=== PATIENT | male | born 1990 ===

== ENCOUNTER 2017-03-06 07:36 | Emergency (ER) | payer MEDICAID ==
[2017-03-06 07:36] VITALS: BMI 24.4
[2017-03-06] MEDS ORDERED: Morphine 4 MG/ML VIAL ONE (07:58)
[2017-03-06] MEDS ORDERED: Sodium Chloride 0.9% 1,000 ML ONE (07:59)
[2017-03-06] MEDS ORDERED: Sodium Chloride 0.9% 1,000 ML IV STA (08:06)
[2017-03-06 08:19] LABS: BASO # 0.1 K/uL (0.0-0.2); BASO % 0.5 % (0.0-2.0); EOS # 0.1 K/uL (0.0-0.7); EOS % 0.9 % (0.0-4.0); HEMOGLOBIN 15.1 g/dL (12.0-18.0); LYMPH # 1.9 K/uL (1.0-4.3); LYMPH % 15.2 % (20.0-40.0); MEAN CELL VOLUME 86.2 fL (80.0-94.0); MEAN CORPUSCULAR HEMOGLOBIN 28.1 pg (27.0-31.0); MEAN CORPUSCULAR HGB CONC 32.6 g/dL (33.0-37.0); MEAN PLATELET VOLUME 9.3 fL (7.2-11.7); MONO # 0.8 K/uL (0.0-0.8); MONO % 6.5 % (0.0-10.0); NEUT # 9.7 K/uL (1.8-7.0); NEUT % 76.9 % (50.0-75.0); NRBC % 0.1 % (0.0-2.0); RBC 5.37 Mil/uL (4.40-5.90); RED CELL DISTRIBUTION WIDTH 13.8 % (11.5-14.5); WHITE BLOOD COUNT 12.7 K/uL (4.8-10.8)
[2017-03-06 08:28] LABS: ALB/GLOB RATIO 1.2 (1.0-2.1); AST/SGOT 28 U/L (17-59); BLOOD UREA NITROGEN 12 mg/dL (9-20); GFR AFRICAN-AMERICAN > 60; GFR NON-AFRICAN AMERICAN > 60
[2017-03-06 08:29] LABS: ALT/SGPT 32 U/L (21-72); CALCIUM 8.9 mg/dl (8.6-10.4)
--- NOTE | 2017-03-06 09:39 | CT ---
PROCEDURE: CT HEAD WITHOUT CONTRAST. HISTORY: Headache COMPARISON: None available. TECHNIQUE: Axial computed tomography images were obtained through the head/brain without intravenous contrast. Radiation dose: Total exam DLP = 1856 mGy-cm. This CT exam was performed using one or more of the following dose reduction techniques: Automated exposure control, adjustment of the mA and/or kV according to patient size, and/or use of iterative reconstruction technique. FINDINGS: HEMORRHAGE: No intracranial hemorrhage. BRAIN: No mass effect or edema. No atrophy or chronic microvascular ischemic changes. Calcified pineal gland. VENTRICLES: Unremarkable. No hydrocephalus. CALVARIUM: Unremarkable. PARANASAL SINUSES: Unremarkable as visualized. No significant inflammatory changes. MASTOID AIR CELLS: Unremarkable as visualized. No inflammatory changes. OTHER FINDINGS: None. IMPRESSION: No acute intracranial abnormality. If headache persists, consider MRI.
--- NOTE | 2017-03-06 10:16 | C.PDOC ---
History Of Present Illness Patient is a 26 year old male, with Hx of migraine, that presents to the ED for evaluation of pounding headache associated with nausea, vomiting, and photophobia for the past several days. Notes that headache radiates from behind his left eye, and left methodist to posterior aspect of head. Patient reports having headache for the last 2 years, but states his symptoms have worsened in the last 2 days which prompted him to visit ED. Pt states that he has severe headache almost every day, and states he had headache 20/30 days last month. Patient states he is afraid to be evaluated since his mother also has history of migraine and was diagnosed with brain tumor. Otherwise, denies any extremity weakness, numbness, dizziness, lightheadedness, blurry vision, fever, chills, or any other associated symptoms at this time. Chief Complaint (Nursing): Headache History Per: Patient History/Exam Limitations: no limitations Onset/Duration Of Symptoms: Days (2) Current Symptoms Are (Timing): Still Present Quality: Aching Preceeding Symptoms: Known Migraine Symptoms Associated Symptoms: Photophobia, Nausea, Vomiting. denies: Blurred Vision, Extremity Weakness Recent travel outside of the [place]: No Additional History Per: Patient Past Medical History Reviewed: Historical Data, Nursing Documentation, Vital Signs Vital Signs: Last Vital Signs Temp 98.1 F 03/06/17 10:44 Pulse 44 L 03/06/17 10:44 Resp 18 03/06/17 10:44 BP 130/61 03/06/17 10:44 Pulse Ox 100 03/06/17 12:48 - Medical History PMH: Anxiety (NO MEDS), Arthritis, Asthma (NO MEDS SEVERAL YEARS), Depression ( NO MEDS), Migraine, Rheumatoid Arthritis (NO MEDS/KNEE SHOULDER PAIN), Sickle Cell Disease (ANEMIA; TRAIT) Denies: Chronic Kidney Disease - [facility] Procedures RADICAL EXCIS SKIN LES (04/19/15) Family History: States: Unknown Family Hx - Social History Hx Tobacco Use: Yes Hx Alcohol Use: Yes Hx Substance Use: Yes (USES MARIJUANA FOR PAIN INSTEAD OF NARCOTICS) - Immunization History Hx Tetanus Toxoid Vaccination: No Hx Influenza Vaccination: No Hx Pneumococcal Vaccination: No Review Of Systems Except As Marked, All Systems Reviewed And Found Negative. Constitutional: Negative for: Fever, Chills Eyes: Positive for: Other (photophobia) Cardiovascular: Negative for: Chest Pain, Palpitations, Light Headedness Gastrointestinal: Positive for: Nausea, Vomiting. Negative for: Abdominal Pain , Diarrhea Neurological: Positive for: Headache. Negative for: Weakness, Numbness, Dizziness Physical Exam - Physical Exam Appears: Non-toxic, No Acute Distress Skin: Normal Color, Warm, Dry Head: Atraumatic, Normacephalic Eye(s): bilateral: Normal Inspection, PERRL, EOMI Neck: Normal ROM, Supple Chest: Symmetrical, No Tenderness Cardiovascular: Rhythm Regular, No Murmur Respiratory: Normal Breath Sounds, No Rales, No Rhonchi, No Wheezing Gastrointestinal/Abdominal: Soft, No Tenderness Extremity: Normal ROM Neurological/Psych: Oriented x3, Normal Speech, Normal Cognition, Normal Motor, Normal Sensation, Other (neuro intact) ED Course And Treatment - Laboratory Results Result Diagrams: 03/06/17 08:04 03/06/17 08:04 O2 Sat by Pulse Oximetry: 100 (on RA) Pulse Ox Interpretation: Normal - CT Scan/US Head CT Other Rad Studies (CT/US): Read By Radiologist, Radiology Report Reviewed CT/US Interpretation: FINDINGS: HEMORRHAGE: No intracranial hemorrhage. BRAIN : No mass effect or edema. No atrophy or chronic microvascular ischemic changes. Calcified pineal gland. VENTRICLES: Unremarkable. No hydrocephalus. CALVARIUM: Unremarkable. PARANASAL SINUSES: Unremarkable as visualized. No significant inflammatory changes. MASTOID AIR CELLS: Unremarkable as visualized. No inflammatory changes. OTHER FINDINGS: None. IMPRESSION: No acute intracranial abnormality. If headache persists, consider MRI. Progress Note: Head CT, labs ordered and reviewed. Patient was given Reglan IVP , Morphine IVP, and IV fluids in the ER. On reassessment, patient is resting comfortably, with no acute distress. No neurological deficits. Patient reports improvement of symptoms. Patient is being discharged home, with instructions to follow up with neurologist in 1-2 days. Disposition - Disposition Referrals: Josef Waterman MD [Staff Provider] - Camden Barrera MD [Staff Provider] - [facility] [Outside] Disposition: HOME/ ROUTINE Disposition Time: 10:59 Condition: STABLE Additional Instructions: Follow up with PMD and Neurologist within 1-2 days. Return to Ed if feel worse. 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 - Scribe Statement The provider has reviewed the documentation as recorded by the Andrewibsheila Tanner All medical record entries made by the Alexandr were at my direction and personally dictated by me. I have reviewed the chart and agree that the record accurately reflects my personal performance of the history, physical exam, medical decision making, and the department course for this patient. I have also personally directed, reviewed, and agree with the discharge instructions and disposition.
[2017-03-06 10:33] LABS: SQUAMOUS EPITHIAL < 1 /hpf (0-5); URINE BILIRUBIN NEGATIVE (NEGATIVE); URINE CLARITY Clear (Clear); URINE COLOR Yellow (YELLOW); URINE GLUCOSE (UA) NORMAL (Normal); URINE LEUKOCYTE ESTERASE NEG Leu/uL (Negative); URINE NITRATE NEGATIVE (NEGATIVE); URINE PROTEIN NEGATIVE (NEGATIVE); URINE UROBILINOGEN NORMAL mg/dL (0.2-1.0)
[2017-03-06 10:34] LABS: URINE BLOOD TRACE (NEGATIVE)
[2017-03-06 10:37] LABS: BARBITURATES, UR NEGATIVE (NEGATIVE); BENZODIAZEPINES, UR NEGATIVE (NEGATIVE)
[2017-03-06 10:41] LABS: PHENCYCLIDINE, UR NEGATIVE (NEGATIVE)
[2017-03-06 10:44] VITALS: BP 130/61; PULSE 44; RESP 18; TEMP 98.1
[2017-03-06 10:54] LABS: OPIATES, UR POSITIVE (NEGATIVE)
[2017-03-06 11:02] VITALS: O2SAT 100
== END 2017-03-06 11:11 | disposition home or self-care (01) ==
LOC: C.ER 07:36
DX: R51 Headache (principal)
CPT/HCPCS: 70450; 80053; 80324; 80345; 80346; 80349; 80353; 80358; 80361; 81001; 83992; 85025; 85651; 96361; 96374; 96375; 99285; J2270; J2765; J7040

== ENCOUNTER 2017-03-07 08:28 | Emergency (ER) | payer MEDICAID ==
[2017-03-07 08:28] VITALS: BMI 24.4
[2017-03-07] MEDS ORDERED: Sodium Chloride 0.9% 1,000 ML ONE (08:53)
[2017-03-07] MEDS ORDERED: Sodium Chloride 0.9% 1,000 ML IV STA (08:57)
--- NOTE | 2017-03-07 09:03 | C.PDOC ---
History Of Present Illness Patient is a 26 year old male, with PMH of migraine, that presents to the ED for evaluation of pounding headache associated with nausea, vomiting, and photophobia for the past 3 days. Headache reportedly started in left eye and mosque area and radiates to posterior aspect of head. Patient reports having frequent headaches for the last 2 years. Pt states that he has severe headache almost every day. Patient states mother also has history of migraine, and was diagnosed with brain tumor. Patient smokes marijuana to help his pain. Otherwise , denies any extremity weakness, numbness, dizziness,blurry vision, fever, neck pain, or any other associated symptoms at this time. Time Seen by Provider: 03/07/17 08:49 Chief Complaint (Nursing): Headache History Per: Patient History/Exam Limitations: no limitations Onset/Duration Of Symptoms: Days Current Symptoms Are (Timing): Still Present Associated Symptoms: Photophobia, Nausea, Vomiting. denies: Extremity Weakness Recent travel outside of the [place]: No Past Medical History Reviewed: Historical Data, Nursing Documentation, Vital Signs Vital Signs: Last Vital Signs Temp 98.5 F 03/07/17 12:33 Pulse 55 L 03/07/17 12:33 Resp 17 03/07/17 12:33 BP 130/75 03/07/17 12:33 Pulse Ox 97 03/07/17 12:33 - Medical History PMH: Anxiety (NO MEDS), Arthritis, Asthma (NO MEDS SEVERAL YEARS), Depression ( NO MEDS), Migraine, Rheumatoid Arthritis (NO MEDS/KNEE SHOULDER PAIN), Sickle Cell Disease (ANEMIA; TRAIT) - [facility] Procedures RADICAL EXCIS SKIN LES (04/19/15) Family History: States: Unknown Family Hx - Social History Hx Tobacco Use: Yes Hx Alcohol Use: Yes Hx Substance Use: Yes (USES MARIJUANA FOR PAIN INSTEAD OF NARCOTICS) - Immunization History Hx Tetanus Toxoid Vaccination: No Hx Influenza Vaccination: No Hx Pneumococcal Vaccination: No Review Of Systems Except As Marked, All Systems Reviewed And Found Negative. Constitutional: Negative for: Fever, Chills Cardiovascular: Negative for: Chest Pain, Palpitations Respiratory: Negative for: Cough, Shortness of Breath Gastrointestinal: Positive for: Nausea, Vomiting. Negative for: Abdominal Pain Musculoskeletal: Negative for: Neck Pain Skin: Negative for: Rash Neurological: Positive for: Headache. Negative for: Weakness, Numbness, Dizziness Physical Exam - Physical Exam Appears: Non-toxic, No Acute Distress Skin: Normal Color, Warm, Dry Head: Atraumatic, Normacephalic, No Tenderness, No Swelling Eye(s): bilateral: Normal Inspection, PERRL, EOMI, left: Photophobia Ear(s): Bilateral: Normal Nose: Normal Oral Mucosa: Moist Throat: Normal Neck: Normal ROM, Supple Chest: Symmetrical Cardiovascular: Rhythm Regular, No Murmur Respiratory: Normal Breath Sounds, No Rales, No Rhonchi, No Wheezing Gastrointestinal/Abdominal: Soft, No Tenderness Back: Normal Inspection Extremity: Normal ROM, No Tenderness, Capillary Refill (< 2 sec.), No Deformity , No Swelling Neurological/Psych: Oriented x3, Normal Speech, Normal Cranial Nerves, No Cerebellar Signs, Normal Motor, Normal Sensation ED Course And Treatment O2 Sat by Pulse Oximetry: 100 (RA) Pulse Ox Interpretation: Normal Medical Decision Making Medical Decision Making: Impression: Headache Prior record from yesterday, patient had normal labs and CT of head. Patient discharged with Rx. Plan: * Tylenol, Toradol, Reglan, IV fluids Progress: Patient continues to have headache. Order Mag and Valproate. Upon second reevaluation, patient now feeling better, sitting upright and states headache much improved. He remains afebrile alert and oriented with normal neuro exam. He feels comfortable going home and will be discharged Disposition Counseled Patient/Family Regarding: Diagnosis, Need For Followup, Rx Given - Disposition Referrals: Camden Barrera MD [Staff Provider] - Josef Waterman MD [Staff Provider] - Disposition: HOME/ ROUTINE Disposition Time: 12:19 Condition: IMPROVED Additional Instructions: Follow up with your primary medical doctor or clinic in 2-5 days for further evaluation. Take medications as prescribed. Return to the emergency department at any time if symptoms persist or worsen. 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 - Scribe Statement The provider has reviewed the documentation as recorded by the Scribe Koko Moussa All medical record entries made by the Alexandr were at my direction and personally dictated by me. I have reviewed the chart and agree that the record accurately reflects my personal performance of the history, physical exam, medical decision making, and the department course for this patient. I have also personally directed, reviewed, and agree with the discharge instructions and disposition.
[2017-03-07] MEDS ORDERED: Dexamethasone 4 mg/1 ml IVP STA (10:11)
[2017-03-07] MEDS ORDERED: Magnesium Sulfate 1 gm in D5W 1 GM/100 ML BAG IVPB STA (10:11)
[2017-03-07] MEDS ORDERED: Dexamethasone 4 mg/1 ml ONE (10:25)
[2017-03-07] MEDS ORDERED: Magnesium Sulfate 1 gm in D5W 1 GM/100 ML BAG IVPB ONE (10:26)
[2017-03-07 11:24] VITALS: PULSE 55
[2017-03-07 12:39] VITALS: BP 130/75; RESP 17; TEMP 98.5
[2017-03-07 13:55] VITALS: O2SAT 100
== END 2017-03-07 12:43 | disposition home or self-care (01) ==
LOC: C.ER 08:28
DX: G43.909 Migraine, unspecified, not intractable, without status migrainosus (principal)
CPT/HCPCS: 96361; 96365; 96375; 99285; J1100; J1885; J2765; J3475; J7040

== ENCOUNTER 2017-03-10 01:40 | Emergency (ER) | payer MEDICAID ==
[2017-03-10 01:42] VITALS: BMI 24.4
[2017-03-10] MEDS ORDERED: Sodium Chloride 0.9% 500 ML IV STA (02:23)
[2017-03-10] MEDS ORDERED: Sodium Chloride 0.9% 500 ML IV ONE (02:30)
--- NOTE | 2017-03-10 03:57 | C.PDOC ---
History Of Present Illness The patient, a 26 y/o male with history of migraine headaches, presents to the ED for evaluation of headache which began around 3 days ago. Patient was evaluated in [facility] on 03/02 for similar complaints. During his visit, patient underwent CT Head and labs which were all unremarkable. Patient returned to ED again on 03/07 for same complaints and stated he ran out of his Imitrex medication. Patient presents to the ED requesting pain medication and denies fever, chills, neck pain, vision change, nausea, vomiting. Time Seen by Provider: 03/10/17 01:56 Chief Complaint (Nursing): Headache History Per: Patient History/Exam Limitations: no limitations Onset/Duration Of Symptoms: Days (3) Current Symptoms Are (Timing): Still Present Quality: Aching Preceeding Symptoms: Known Migraine Symptoms. denies: Visual Disturbances Associated Symptoms: denies: Photophobia, Blurred Vision, Nausea, Vomiting Additional History Per: Patient Past Medical History Reviewed: Historical Data, Nursing Documentation, Vital Signs Vital Signs: Last Vital Signs Temp 98.4 F 03/10/17 04:13 Pulse 62 03/10/17 04:13 Resp 18 03/10/17 04:13 BP 132/65 03/10/17 04:13 Pulse Ox 100 03/10/17 06:33 - Medical History PMH: Anxiety (NO MEDS), Arthritis, Asthma (NO MEDS SEVERAL YEARS), Depression ( NO MEDS), Migraine, Rheumatoid Arthritis (NO MEDS/KNEE SHOULDER PAIN), Sickle Cell Disease (ANEMIA; TRAIT) Surgical History: No Surg Hx - [facility] Procedures RADICAL EXCIS SKIN LES (04/19/15) Family History: States: Unknown Family Hx - Social History Hx Tobacco Use: Yes Hx Alcohol Use: Yes Hx Substance Use: Yes (USES MARIJUANA FOR PAIN INSTEAD OF NARCOTICS) - Immunization History Hx Tetanus Toxoid Vaccination: No Hx Influenza Vaccination: No Hx Pneumococcal Vaccination: No Review Of Systems Constitutional: Negative for: Fever, Chills Eyes: Negative for: Vision Change Gastrointestinal: Negative for: Nausea, Vomiting Neurological: Positive for: Headache Physical Exam - Physical Exam Appears: Non-toxic, No Acute Distress Skin: Normal Color, Warm, Dry Head: Atraumatic, Normacephalic, No Tenderness, No Swelling Eye(s): bilateral: Normal Inspection Ear(s): Bilateral: Normal Nose: Normal, No Discharge Oral Mucosa: Moist Throat: Normal, No Erythema, No Exudate Neck: Normal ROM, Supple Chest: Symmetrical, No Deformity Cardiovascular: Rhythm Regular Respiratory: Normal Breath Sounds Extremity: Normal ROM Neurological/Psych: Oriented x3, Normal Speech, Normal Cognition, Other (no focal deficits ) Gait: Steady ED Course And Treatment O2 Sat by Pulse Oximetry: 100 (on RA) Pulse Ox Interpretation: Normal Progress Note: Patient received Toradol IV, Reglan IV, and IV fluids. On reassessment, roberto is resting comfortably, showing no signs of distress, and reports an improvement in his symptoms. Patient is stable for discharge and is advised to follow up with his PMD within 1-2 days for further evaluation. 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 - Scribe Statement The provider has reviewed the documentation as recorded by the Scribe (Krystal Tanner) All medical record entries made by the Scribe were at my direction and personally dictated by me. I have reviewed the chart and agree that the record accurately reflects my personal performance of the history, physical exam, medical decision making, and the department course for this patient. I have also personally directed, reviewed, and agree with the discharge instructions and disposition.
[2017-03-10 04:13] VITALS: BP 132/65; PULSE 62; RESP 18; TEMP 98.4
[2017-03-10 06:26] VITALS: O2SAT 100
== END 2017-03-10 04:13 | disposition home or self-care (01) ==
LOC: C.ER 01:40
DX: G43.909 Migraine, unspecified, not intractable, without status migrainosus (principal)
CPT/HCPCS: 96361; 96374; 96375; 99285; J1885; J2765; J7040

== ENCOUNTER 2017-03-11 08:20 | Observation (INO) | payer MEDICAID ==
[2017-03-11 08:20] VITALS: BMI 24.4
[2017-03-11] MEDS ORDERED: Sodium Chloride 0.9% 1,000 ML IV ONE (09:03)
--- NOTE | 2017-03-11 09:19 | C.PDOC ---
History Of Present Illness <Vikki Morales - Last Filed: 03/11/17 10:04> <Roma Doss - Last Filed: 03/11/17 14:56> 26-year-old male, PMHx includes Anxiety, Arthritis, Asthma, Depression, Migraine , and Rheumatoid Arthritis, presents to the emergency department with complaints of headache. Patient states he has been experiencing a recurring left -sided headache for several days. Patient states he has a headache 20/30 days in a month. Patient has been seen in ED four times in the past four days, and has not followed with neurology. Associated symptoms include nausea, non-bilious /non-bloody vomiting, photophobia, and sensitivty to sound and smell. Patient had a head CT on 03/06 that was negative. Patient notes that he took Fioricet and Emetrex at 07:30 this morning with minimal relief. Denies neck pain, fevers, diarrhea, chills, shortness of breath, dizziness, syncope, or any other associated symptoms. States this is not the worst headache of life. No other complaints at this time. (Vikki Morales) History Per: Patient History/Exam Limitations: no limitations Onset/Duration Of Symptoms: Days Current Symptoms Are (Timing): Still Present Severity: Moderate <Vikki Morales - Last Filed: 03/11/17 10:04> <Roma Doss - Last Filed: 03/11/17 14:56> Time Seen by Provider: 03/11/17 08:31 Chief Complaint (Nursing): Headache Past Medical History Reviewed: Historical Data, Nursing Documentation, Vital Signs - Medical History PMH: Anxiety (NO MEDS), Arthritis, Asthma (NO MEDS SEVERAL YEARS), Depression ( NO MEDS), Migraine, Rheumatoid Arthritis (NO MEDS/KNEE SHOULDER PAIN), Sickle Cell Disease (ANEMIA; TRAIT) Denies: Chronic Kidney Disease Family History: States: No Known Family Hx - Social History Hx Tobacco Use: Yes Hx Alcohol Use: Yes Hx Substance Use: Yes (USES MARIJUANA FOR PAIN INSTEAD OF NARCOTICS) - Immunization History Hx Tetanus Toxoid Vaccination: No Hx Influenza Vaccination: No Hx Pneumococcal Vaccination: No <Vikki Morales - Last Filed: 03/11/17 10:04> Review Of Systems Constitutional: Negative for: Fever, Chills Eyes: Positive for: Other (Photophobia) Cardiovascular: Negative for: Chest Pain, Palpitations Gastrointestinal: Positive for: Nausea, Vomiting Musculoskeletal: Negative for: Neck Pain, Back Pain Neurological: Positive for: Headache. Negative for: Weakness, Numbness, Dizziness <Vikki Morales - Last Filed: 03/11/17 10:04> Physical Exam - Physical Exam Appears: Non-toxic, No Acute Distress, Other (Uncomfortable. Wearing sunglassess in dark room.) Head: Atraumatic, Normacephalic Eye(s): bilateral: Normal Inspection, PERRL, EOMI, Photophobia Nose: Normal Oral Mucosa: Moist Lips: Normal Appearing Neck: Normal ROM Cardiovascular: Rhythm Regular, No Murmur Respiratory: Normal Breath Sounds, No Accessory Muscle Use Extremity: Normal ROM Neurological/Psych: Oriented x3, Normal Speech, Other (No focal deficit) <Vikki Morales - Last Filed: 03/11/17 10:04> ED Course And Treatment - Laboratory Results Result Diagrams: 03/11/17 09:21 03/11/17 09:21 O2 Sat by Pulse Oximetry: 100 (on RA) Pulse Ox Interpretation: Normal <Vikki Morales - Last Filed: 03/11/17 10:04> - Laboratory Results Result Diagrams: 03/11/17 09:21 03/11/17 09:21 <Roma Doss - Last Filed: 03/11/17 14:56> Lumbar Puncture - Time Out Time Out: Side verified, Site verified, Patient ID confirmed, Sterile procedures obs. - Consent obtained Consent obtained: Written - Performed by Performed by: Attending Physician - Indications Indication(s): Suspected menigitis - Contraindications Contraindications: None - Patient Position Patient position: Sitting - Local Anesthetic Location: L3/L4 - Fluid Appearance Fluid Appearance: Clear Amount Drained ml: 15ml - Post-procedure Post-procedure: No leak/bld from LP site, Dressing applied, Patient laid flat, Neurovascular status nml <Roma Doss - Last Filed: 03/11/17 14:56> Medical Decision Making <Vikki Morales - Last Filed: 03/11/17 10:04> <Roma Doss - Last Filed: 03/11/17 14:56> Medical Decision Making: Impression 26y/o M comes in w/ a recurrent headache Prior Visits Notes and records from previous visits were reviewed. patient seen in ED on and had a CT head that did not reveal any acute findings. Plan: * CMP * CBC * Morphine, Reglan, IVFs * O2 via NC * Reassess and Disposition [address] Khushboo Tanner, will admit to his service for brain mri, neuro consult and pain control. 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 - Scribe Statement The provider has reviewed the documentation as recorded by the Scribe (Mike Ramos) <Vikki Morales - Last Filed: 03/11/17 10:04> <Roma Doss - Last Filed: 03/11/17 14:56> - Scribe Statement All medical record entries made by the Scribe were at my direction and personally dictated by me. I have reviewed the chart and agree that the record accurately reflects my personal performance of the history, physical exam, medical decision making, and the department course for this patient. I have also personally directed, reviewed, and agree with the discharge instructions and disposition. (Vikki Morales) Decision To Admit - Pt Status Changed To: Hospital Disposition Of: Observation - . Bed Request Type: Regular <Vikki Morales - Last Filed: 03/11/17 10:04> <Roma Doss - Last Filed: 03/11/17 14:56> - . Patient Diagnosis: Headache, Intractable pain Addendum <Vikki Morales - Last Filed: 03/11/17 10:04> <Roma Doss - Last Filed: 03/11/17 14:56> Addendum: 03/11/17 14:55 LP done by me, patient tolerated well. (Roma Doss)
[2017-03-11 09:33] LABS: ALBUMIN 3.6 g/dL (3.5-5.0); BASO % 0.1 % (0.0-2.0); EOS % 0.3 % (0.0-4.0); HEMOGLOBIN 13.5 g/dL (12.0-18.0); LYMPH # 0.9 K/uL (1.0-4.3); LYMPH % 8.1 % (20.0-40.0); MEAN CELL VOLUME 85.7 fL (80.0-94.0); MEAN CORPUSCULAR HEMOGLOBIN 27.6 pg (27.0-31.0); MEAN CORPUSCULAR HGB CONC 32.2 g/dL (33.0-37.0); MEAN PLATELET VOLUME 9.7 fL (7.2-11.7); MONO # 0.5 K/uL (0.0-0.8); MONO % 4.5 % (0.0-10.0); NRBC % 0.1 % (0.0-2.0); PLATELET COUNT 158 K/uL (130-400); RBC 4.88 Mil/uL (4.40-5.90); RED CELL DISTRIBUTION WIDTH 13.8 % (11.5-14.5); WHITE BLOOD COUNT 11.5 K/uL (4.8-10.8)
[2017-03-11 09:36] LABS: AST/SGOT 19 U/L (17-59); GFR AFRICAN-AMERICAN > 60; GFR NON-AFRICAN AMERICAN > 60
[2017-03-11 09:37] LABS: ALB/GLOB RATIO 1.2 (1.0-2.1); ALT/SGPT 37 U/L (21-72); BLOOD UREA NITROGEN 15 mg/dL (9-20); CALCIUM 8.4 mg/dl (8.6-10.4)
[2017-03-11] MEDS ORDERED: MethylPREDNISolone 40 mg Vial IVP STA (10:00)
[2017-03-11] MEDS ORDERED: Magnesium Sulfate 1 gm in D5W 2 GM/200 ML BAG IVPB ONE (10:10)
[2017-03-11] MEDS: Magnesium Sulfate 1 gm in D5W 1 GM/100 ML BAG IVPB SCH ×2 (10:12→10:30)
[2017-03-11 10:30] LABS: URINE BILIRUBIN NEGATIVE (NEGATIVE); URINE BLOOD NEGATIVE (NEGATIVE); URINE CLARITY Clear (Clear); URINE COLOR Yellow (YELLOW); URINE GLUCOSE (UA) NORMAL (Normal); URINE LEUKOCYTE ESTERASE NEG Leu/uL (Negative); URINE NITRATE NEGATIVE (NEGATIVE); URINE PROTEIN NEGATIVE (NEGATIVE); URINE UROBILINOGEN NORMAL mg/dL (0.2-1.0)
[2017-03-11 10:54] LABS: BANDS 7 % (0-2); LYMPHOCYTE 7 % (20-40); MONOCYTE 3 % (0-10); NEUTROPHIL 83 % (50-75); PLATELET ESTIMATE NORMAL (NORMAL); TOTAL CELLS COUNTED 100
[2017-03-11 11:18] LABS: BARBITURATES, UR POSITIVE (NEGATIVE)
[2017-03-11 11:19] LABS: BENZODIAZEPINES, UR NEGATIVE (NEGATIVE)
[2017-03-11 11:20] LABS: OPIATES, UR POSITIVE (NEGATIVE)
[2017-03-11 11:31] LABS: PHENCYCLIDINE, UR NEGATIVE (NEGATIVE)
[2017-03-11] MEDS ORDERED: Dexamethasone 4 mg/1 ml IV SCH (12:14)
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
[2017-03-11] MEDS ORDERED: Gadodiamide 287 MG/ML VIAL (15ML) IV ONE (13:26)
--- NOTE | 2017-03-11 13:58 | MRI ---
Brain parenchyma PROCEDURE: MRI BRAIN WITH AND WITHOUT CONTRAST HISTORY: unremitting headache COMPARISON: None. TECHNIQUE: Multiplanar, multisequence MR images of the brain were obtained with and without intravenous contrast enhancement. FINDINGS: HEMORRHAGE: None DWI: No evidence of an acute or early subacute infarction. BRAIN PARENCHYMA: There at least 2-3 small sub centimeter long TR hyperintensities with 1 at the splenium of the corpus callosum and at least at least 1 in each of the bilateral cerebellar hemispheres. None appear to enhance and in fact there is no abnormal intracranial enhancement throughout the gadolinium enhanced series. All migraine headaches can be the cause of these signal abnormalities, the differential diagnosis is rather broad and includes demyelination, Lyme disease and vasculitis as well as others. Further clinical correlation is advised. No atrophy or chronic microvascular ischemic changes. ENHANCEMENT: No abnormal intracranial enhancement. VENTRICLES: Unremarkable. No hydrocephalus. CRANIUM: Unremarkable. ORBITS: Grossly unremarkable. PARANASAL SINUSES/MASTOIDS: Clear VASCULAR SYSTEM: Skull base flow voids intact. OTHER FINDINGS: None . IMPRESSION: A few tiny signal abnormalities verified at the corpus callosum as well as the cerebellar hemispheres which do not enhance. No abnormal intracranial enhancement is encountered. Remainder the examination appears normal. Please see differential diagnosis above
[2017-03-11] MEDS ORDERED: Lidocaine 1% Inj (20ml) INFIL ONE (14:11)
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
[2017-03-11 15:30] LABS: FLUID TYPE SPINAL FLUID
[2017-03-11 17:06] LABS: CSF APPEARANCE CLEAR/COLORLESS (CLEAR); CSF VOLUME 2 mL (0-1)
[2017-03-11 17:08] VITALS: O2SAT 99
[2017-03-11] MEDS ORDERED: Vancomycin 1 gm/NS 200 ml 1 GM/200 ML BAG IVPB SCH (18:00)
[2017-03-11] MEDS: Saccharomyces Boulardi 250 mg Cap PO SCH (18:57)
[2017-03-11] MEDS ORDERED: cefTRIAXone 2 GM in Sodium Chloride 0.9% 100 ML IVPB SCH (22:00)
[2017-03-12 06:44] LABS: HEMOGLOBIN 13.9 g/dL (12.0-18.0); LYMPH # 0.8 K/uL (1.0-4.3); LYMPH % 3.8 % (20.0-40.0); MEAN CELL VOLUME 85.3 fL (80.0-94.0); MEAN CORPUSCULAR HEMOGLOBIN 28.2 pg (27.0-31.0); MEAN CORPUSCULAR HGB CONC 33.1 g/dL (33.0-37.0); MEAN PLATELET VOLUME 10.5 fL (7.2-11.7); MONO # 0.6 K/uL (0.0-0.8); MONO % 2.8 % (0.0-10.0); NEUT # 19.5 K/uL (1.8-7.0); NEUT % 93.4 % (50.0-75.0); PLATELET COUNT 158 K/uL (130-400); RBC 4.91 Mil/uL (4.40-5.90); RED CELL DISTRIBUTION WIDTH 13.8 % (11.5-14.5); WHITE BLOOD COUNT 20.9 K/uL (4.8-10.8)
[2017-03-12 06:56] LABS: BLOOD UREA NITROGEN 16 mg/dL (9-20); GFR AFRICAN-AMERICAN > 60; GFR NON-AFRICAN AMERICAN > 60
[2017-03-12 06:57] LABS: CALCIUM 8.4 mg/dl (8.6-10.4)
[2017-03-12 07:46] LABS: FOLATE 11.5 ng/mL
[2017-03-12 08:17] LABS: LYMPHOCYTE 3 % (20-40); MONOCYTE 2 % (0-10); NEUTROPHIL 95 % (50-75); PLATELET ESTIMATE NORMAL (NORMAL); TOTAL CELLS COUNTED 100
[2017-03-12 08:31] VITALS: BP 132/73; RESP 18; TEMP 98.2
--- NOTE | 2017-03-12 09:03 | CP.PCM.PN ---
Subjective - Date & Time of Evaluation Date of Evaluation: 03/12/17 Time of Evaluation: 07:15 - Subjective Subjective: Cardiology Progress note for Dr. Ware Patient seen and examined at bedside. As per nursing patient requested pain medications on two occasions overnight for his headache which is when his HR was in 40s on TELE. Patient was much better this AM and reported his headache had improved although it was exacerbated last night when he was urinating. He denied any photophobia and phonophobia and although he was nauseous he did not have more episodes of emesis. Patient was afebrile overnight but reported subjective fever and chills. His neck pain had improved. Patient denied chest pain, palpitations, SOB, cough, abd pain, bowel/bladder complaints, pain/ swelling in his legs bilaterally. Patient had exercise stress test this AM which was unremarkable. Objective - Vital Signs/Intake and Output Vital Signs (last 24 hours): Temp Pulse Resp BP Pulse Ox 98.2 F 48 L 18 132/73 99 03/12/17 08:30 03/12/17 08:30 03/12/17 08:30 03/12/17 08:30 03/12/17 08:30 Intake and Output: 03/12/17 03/12/17 06:59 18:59 Output Total 200 Balance -200 - Medications Medications: Current Medications Acetaminophen (Tylenol 325mg Tab) 650 mg PO Q6 PRN PRN Reason: Headache Last Admin: 03/12/17 01:03 Dose: 650 mg Dexamethasone (Decadron Inj) 10 mg IV Q6 JANY Stop: 03/15/17 10:00 Last Admin: 03/12/17 06:57 Dose: 10 mg Ceftriaxone Sodium 2 gm/ (Sodium Chloride) 100 mls @ 100 mls/hr IVPB DAILY [facility] Ketorolac Tromethamine (Toradol) 30 mg IVP Q6 PRN PRN Reason: Pain, moderate (4-7) Last Admin: 03/12/17 01:25 Dose: 30 mg Pantoprazole Sodium (Protonix Inj) 40 mg IVP DAILY [facility] Pneumococcal Polyvalent Vaccine (Pneumovax 23 Vaccine) 0.5 ml IM .ONCE ONE Stop: 03/13/17 10:01 Saccharomyces Boulardii (Florastor) 250 mg PO BID JANY Last Admin: 03/11/17 18:57 Dose: 250 mg - Labs Labs: 03/12/17 06:06 03/12/17 06:06 - Constitutional Appears: Non-toxic, No Acute Distress - Head Exam Head Exam: ATRAUMATIC, NORMAL INSPECTION, NORMOCEPHALIC - Eye Exam Eye Exam: EOMI, Normal appearance, PERRL. absent: Conjunctival injection, Scleral icterus Pupil Exam: NORMAL ACCOMODATION - ENT Exam ENT Exam: Mucous Membranes Moist - Respiratory Exam Respiratory Exam: Clear to Ausculation Bilateral, NORMAL BREATHING PATTERN. absent: Accessory Muscle Use, Rales, Rhonchi, Wheezes, Respiratory Distress - Cardiovascular Exam Cardiovascular Exam: Bradycardia, REGULAR RHYTHM, +S1, +S2 - GI/Abdominal Exam GI & Abdominal Exam: Soft, Normal Bowel Sounds. absent: Firm, Guarding, Rigid, Tenderness - Extremities Exam Extremities Exam: Normal Capillary Refill, Normal Inspection. absent: Pedal Edema - Neurological Exam Neurological Exam: Alert, Awake, Oriented x3 Additional comments: mentation markedly improved since yesterday 03/11 - Psychiatric Exam Psychiatric exam: Normal Affect, Normal Mood - Skin Skin Exam: Dry, Intact, Normal Color, Warm Assessment and Plan - Assessment and Plan (Free Text) Assessment: 26 year old male PMHx of recurrent migraines, herniated cervical disc s/p surgical repair, sickle cell trait, anxiety, arthritis, asthma, depression, and juvenile rheumatoid arthritis presented to ER 03/11 for intractable headache for 6 days Cardiology consulted for sinus bradycardia Plan: -EKG 03/11: marked sinus bradycardia with marked sinus arrhythmia; HR 40bpm -no need for external pacemaker at this time as patient's BP has been stable and patient is asymptomatic -f/u Echo -Thyroid panel T4: 0.88 TSH: 0.37 -patient had exercise stress test this AM 03/12 which was unremarkable; f/u official report. Case discussed with Dr. Jeanie Owens PGY2
[2017-03-12] MEDS ORDERED: cefTRIAXone 2 GM in Sodium Chloride 0.9% 100 ML IVPB SCH (10:00)
--- NOTE | 2017-03-12 10:59 | CP.PCM.PN ---
Subjective - Date & Time of Evaluation Date of Evaluation: 03/12/17 Time of Evaluation: 08:00 - Subjective Subjective: PGY1- Medicine Note- Dr. Tanner's Service Patient seen and examined at bedside and in no acute distress. Patient says he is feeling a lot better than yesterday. Patient rates his left mandaen pain as a 4/10 today and he notices it especially when he is urinating. Denies burning with urination or change in color of urine. Patient says his neck pain is in the back center of the neck and goes into the back of the head. He rates the neck pain a 6/10. Patient denies shortness of breath, chest pain, and abdominal pain. Objective - Vital Signs/Intake and Output Vital Signs (last 24 hours): Temp Pulse Resp BP Pulse Ox 98.2 F 48 L 18 132/73 99 03/12/17 08:30 03/12/17 08:30 03/12/17 08:30 03/12/17 08:30 03/12/17 08:30 Intake and Output: 03/12/17 03/12/17 06:59 18:59 Output Total 200 Balance -200 - Medications Medications: Current Medications Acetaminophen (Tylenol 325mg Tab) 650 mg PO Q6 PRN PRN Reason: Headache Last Admin: 03/12/17 01:03 Dose: 650 mg Dexamethasone (Decadron Inj) 10 mg IV Q6 [facility] Stop: 03/15/17 10:00 Last Admin: 03/12/17 06:57 Dose: 10 mg Ceftriaxone Sodium 2 gm/ (Sodium Chloride) 100 mls @ 100 mls/hr IVPB DAILY [facility] Ketorolac Tromethamine (Toradol) 30 mg IVP Q6 PRN PRN Reason: Pain, moderate (4-7) Last Admin: 03/12/17 01:25 Dose: 30 mg Pantoprazole Sodium (Protonix Inj) 40 mg IVP DAILY [facility] Pneumococcal Polyvalent Vaccine (Pneumovax 23 Vaccine) 0.5 ml IM .ONCE ONE Stop: 03/13/17 10:01 Saccharomyces Boulardii (Florastor) 250 mg PO BID [facility] Last Admin: 03/11/17 18:57 Dose: 250 mg - Labs Labs: 03/12/17 06:06 03/12/17 06:06 - Constitutional Appears: Well, Non-toxic, No Acute Distress - Head Exam Head Exam: ATRAUMATIC, NORMAL INSPECTION, NORMOCEPHALIC - Eye Exam Eye Exam: EOMI, Normal appearance, PERRL - ENT Exam ENT Exam: Mucous Membranes Moist, Normal Exam - Neck Exam Neck Exam: Full ROM, Normal Inspection, Tenderness. absent: Lymphadenopathy Additional comments: tender on left side and back of neck - Respiratory Exam Respiratory Exam: Clear to Ausculation Bilateral, NORMAL BREATHING PATTERN. absent: Rhonchi, Wheezes, Respiratory Distress, Stridor - Cardiovascular Exam Cardiovascular Exam: Bradycardia, REGULAR RHYTHM - GI/Abdominal Exam GI & Abdominal Exam: Soft, Normal Bowel Sounds. absent: Distended, Firm, Guarding, Tenderness - Extremities Exam Extremities Exam: Full ROM, Normal Inspection. absent: Pedal Edema - Back Exam Back Exam: NORMAL INSPECTION. absent: rash noted - Neurological Exam Neurological Exam: Alert, Awake, Oriented x3 - Psychiatric Exam Psychiatric exam: Normal Affect, Normal Mood - Skin Skin Exam: Intact, Normal Color, Warm Assessment and Plan - Assessment and Plan (Free Text) Assessment: Assessment & Plan (1) Headache Assessment and Plan: Unrelenting headache x6 days MRI brain w/ and w/o contrast Lumbar puncture performed in ED to r/o meningitis, clear fluid attained; volume 2, clear/ colorless, wbc 1, rbc 14, glucose 62, protein 69, VDRL nonreactive, Cryptococcus Ag negative. Ceftriaxone 2gm IV q12 started after spinal tap changed to once daily on 03/[address] Middleton Vancomycin 1gm IV q12 started after spinal tap, not continued blood culture x2 (attainted before abx administration) dexamethasone 10mg IV q6 03/12: WBC 20.9 bmp, TSH .37 free t4 .88, vit b12 284, folate level 11.5 ESR : 2 rpr w/ FTA droplet precautions Neurology consult, Dr Waterman, f/u recommendations ID consult, Dr Middleton, shaun appreciated Status: Acute (2) History of sickle cell trait Assessment and Plan: Hgb 13.5, MCV 85.7 Heme/Onc consult, Dr Mckinley, f/u recommendations Status: Acute (3) Sinus bradycardia Assessment and Plan: HR in 40s 03/12: stress test performed EKG shows sinus rhythm Cardiology consult, Dr Ware, shaun appreciated Status: Acute (4) History of juvenile rheumatoid arthritis Assessment and Plan: Will encourage patient to follow up outpatient with PMD, Dr Montero Status: Acute (5) Prophylactic measure Assessment and Plan: SCD's b/l protonix 40mg IVP daily regular diet Status: Acute
[2017-03-12] MEDS: Saccharomyces Boulardi 250 mg Cap PO SCH (13:00)
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
--- NOTE | 2017-03-12 13:32 | CP.PCM.PN ---
Subjective - Date & Time of Evaluation Date of Evaluation: 03/12/17 Time of Evaluation: 13:25 - Subjective Subjective: Feeling better Objective - Vital Signs/Intake and Output Vital Signs (last 24 hours): Temp Pulse Resp BP Pulse Ox 98.2 F 48 L 18 132/73 99 03/12/17 08:30 03/12/17 08:30 03/12/17 08:30 03/12/17 08:30 03/12/17 08:30 Intake and Output: 03/12/17 03/12/17 06:59 18:59 Output Total 200 Balance -200 - Medications Medications: Current Medications Acetaminophen (Tylenol 325mg Tab) 650 mg PO Q6 PRN PRN Reason: Headache Last Admin: 03/12/17 01:03 Dose: 650 mg Dexamethasone (Decadron Inj) 10 mg IV Q6 [facility] Stop: 03/15/17 10:00 Last Admin: 03/12/17 06:57 Dose: 10 mg Ceftriaxone Sodium 2 gm/ (Sodium Chloride) 100 mls @ 100 mls/hr IVPB DAILY [facility] Last Admin: 03/12/17 13:00 Dose: 100 mls/hr Ketorolac Tromethamine (Toradol) 30 mg IVP Q6 PRN PRN Reason: Pain, moderate (4-7) Last Admin: 03/12/17 12:52 Dose: 30 mg Pantoprazole Sodium (Protonix Inj) 40 mg IVP DAILY [facility] Last Admin: 03/12/17 12:40 Dose: 40 mg Pneumococcal Polyvalent Vaccine (Pneumovax 23 Vaccine) 0.5 ml IM .ONCE ONE Stop: 03/13/17 10:01 Saccharomyces Boulardii (Florastor) 250 mg PO BID [facility] Last Admin: 03/12/17 13:00 Dose: 250 mg - Labs Labs: 03/12/17 06:06 03/12/17 06:06 - Head Exam Head Exam: ATRAUMATIC - Eye Exam Eye Exam: Normal appearance - ENT Exam ENT Exam: Mucous Membranes Dry - Respiratory Exam Respiratory Exam: NORMAL BREATHING PATTERN - Cardiovascular Exam Cardiovascular Exam: +S1, +S2 - GI/Abdominal Exam GI & Abdominal Exam: Normal Bowel Sounds - Extremities Exam Extremities Exam: Normal Inspection - Neurological Exam Neurological Exam: Oriented x3 - Psychiatric Exam Psychiatric exam: Normal Affect, Normal Mood - Skin Skin Exam: Warm Assessment and Plan (1) Leukocytosis Assessment & Plan: on antibiotics and steroids Status: Acute (2) Hemoglobinopathy Assessment & Plan: hgb electropheresis to be sent Status: Acute
--- NOTE | 2017-03-12 13:34 | RAD ---
PROCEDURE: CHEST RADIOGRAPH, 1 VIEW HISTORY: R/O Meningitis COMPARISON: None available. FINDINGS: LUNGS: The lungs are well inflated and clear. PLEURA: No pneumothorax or pleural fluid seen. CARDIOVASCULAR: Normal. OSSEOUS STRUCTURES: No significant abnormalities. VISUALIZED UPPER ABDOMEN: Normal. OTHER FINDINGS: None. IMPRESSION: No active pulmonary disease.
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
--- NOTE | 2017-03-12 17:45 | CP.PCM.DIS ---
Provider - Provider Date of Admission: 03/11/17 10:01 Attending physician: Leonides Tanner MD Time Spent in preparation of Discharge (in minutes): 45 Diagnosis - Discharge Diagnosis (1) Headache Status: Acute Hospital Course - Lab Results Lab Results: Micro Results 03/11/17 15:03 Cerebral Spinal Fluid Gram Stain - Final Most Recent Lab Values WBC 20.9 K/uL (4.8-10.8) H D 03/12/17 06:06 RBC 4.91 Mil/uL (4.40-5.90) 03/12/17 06:06 Hgb 13.9 g/dL (12.0-18.0) 03/12/17 06:06 Hct 41.9 % (35.0-51.0) 03/12/17 06:06 MCV 85.3 fL (80.0-94.0) 03/12/17 06:06 MCH 28.2 pg (27.0-31.0) 03/12/17 06:06 MCHC 33.1 g/dL (33.0-37.0) 03/12/17 06:06 RDW 13.8 % (11.5-14.5) 03/12/17 06:06 Plt Count 158 K/uL (130-400) 03/12/17 06:06 MPV 10.5 fL (7.2-11.7) 03/12/17 06:06 Neut % (Auto) 93.4 % (50.0-75.0) H 03/12/17 06:06 Lymph % (Auto) 3.8 % (20.0-40.0) L 03/12/17 06:06 Reynolds % (Auto) 2.8 % (0.0-10.0) 03/12/17 06:06 Eos % (Auto) 0.0 % (0.0-4.0) 03/12/17 06:06 Baso % (Auto) 0.0 % (0.0-2.0) 03/12/17 06:06 Neut # 19.5 K/uL (1.8-7.0) H 03/12/17 06:06 Lymph # 0.8 K/uL (1.0-4.3) L 03/12/17 06:06 Reynolds # 0.6 K/uL (0.0-0.8) 03/12/17 06:06 Eos # 0.0 K/uL (0.0-0.7) 03/12/17 06:06 Baso # 0.0 K/uL (0.0-0.2) 03/12/17 06:06 Neutrophils % (Manual) 95 % (50-75) H 03/12/17 06:06 Band Neutrophils % 7 % (0-2) H 03/11/17 09:21 Lymphocytes % (Manual) 3 % (20-40) L 03/12/17 06:06 Monocytes % (Manual) 2 % (0-10) 03/12/17 06:06 Platelet Estimate Normal (NORMAL) 03/12/17 06:06 RBC Morphology Normal 03/12/17 06:06 ESR 2 mm/hr (0-15) 03/11/17 09:21 Sodium 138 mmol/L (132-148) 03/12/17 06:06 Potassium 3.9 mmol/L (3.6-5.2) 03/12/17 06:06 Chloride 104 mmol/L (98-107) 03/12/17 06:06 Carbon Dioxide 24 mmol/L (22-30) 03/12/17 06:06 Anion Gap 13 (10-20) 03/12/17 06:06 BUN 16 mg/dL (9-20) 03/12/17 06:06 Creatinine 0.7 MG/DL (0.8-1.5) L 03/12/17 06:06 Est GFR ( Amer) > 60 03/12/17 06:06 Est GFR (Non-Af Amer) > 60 03/12/17 06:06 Random Glucose 141 mg/dL (75-110) H 03/12/17 06:06 Calcium 8.4 mg/dl (8.6-10.4) L 03/12/17 06:06 Phosphorus 2.8 mg/dL (2.5-4.5) 03/12/17 06:06 Magnesium 2.0 mg/dL (1.6-2.3) 03/12/17 06:06 Total Bilirubin 0.5 mg/dL (0.2-1.3) 03/11/17 09:21 AST 19 U/L (17-59) 03/11/17 09:21 ALT 37 U/L (21-72) 03/11/17 09:21 Alkaline Phosphatase 55 U/L (38-126) 03/11/17 09:21 Total Protein 6.6 g/dL (6.3-8.3) 03/11/17 09:21 Albumin 3.6 g/dL (3.5-5.0) 03/11/17 09:21 Globulin 3.0 gm/dL (2.2-3.9) 03/11/17 09:21 Albumin/Globulin Ratio 1.2 (1.0-2.1) 03/11/17 09:21 Vitamin B12 284 pg/mL (239-931) 03/12/17 06:06 Folate 11.5 ng/mL 03/12/17 06:06 Free T4 0.88 ng/dL (0.78-2.19) 03/12/17 06:06 TSH 3rd Generation 0.37 mIU/L (0.46-4.68) L 03/12/17 06:06 Urine Color Yellow (YELLOW) 03/11/17 10:17 Urine Clarity Clear (Clear) 03/11/17 10:17 Urine pH 8.0 (5.0-8.0) 03/11/17 10:17 Ur Specific Spencer 1.012 (1.003-1.030) 03/11/17 10:17 Urine Protein Negative mg/dL (NEGATIVE) 03/11/17 10:17 Urine Glucose (UA) Normal mg/dL (Normal) 03/11/17 10:17 Urine Ketones Negative mg/dL (NEGATIVE) 03/11/17 10:17 Urine Blood Negative (NEGATIVE) 03/11/17 10:17 Urine Nitrate Negative (NEGATIVE) 03/11/17 10:17 Urine Bilirubin Negative (NEGATIVE) 03/11/17 10:17 Urine Urobilinogen Normal mg/dL (0.2-1.0) 03/11/17 10:17 Ur Leukocyte Esterase Neg Jose/uL (Negative) 03/11/17 10:17 Urine WBC (Auto) 1 /hpf (0-5) 03/11/17 10:17 Urine RBC (Auto) 1 /hpf (0-3) 03/11/17 10:17 Fluid Type Spinal fluid 03/11/17 15:29 CSF Volume 2 mL (0-1) H 03/11/17 15:29 CSF Appearance Clear/colorless (CLEAR) 03/11/17 15:29 CSF WBC 1.0 /mm3 (0.0-5.0) 03/11/17 15: CSF RBC 14.0 /mm3 (0.0-0.0) H 03/11/17 15:29 CSF Total Cell Counted TEST NOT PERFORMED 03/11/17 15: CSF Monos/Macrophages TEST NOT PERFORMED 03/11/17 15: CSF Comment 03/11/17 15: CSF Glucose 62 mg/dL (40-70) 03/11/17 15: CSF Total Protein 69.0 mg/dL (12-60) H 03/11/17 15:29 CSF VDRL Nonreactive (Nonreactive) 03/11/17 15: CSF Cryptococcus Ag Negative (NEGATIVE) 03/11/17 15:05 Urine Opiates Screen Positive (NEGATIVE) 03/11/17 10:17 Urine Methadone Screen Negative (NEGATIVE) 03/11/17 10:17 Ur Barbiturates Screen Positive (NEGATIVE) 03/11/17 10:17 Ur Phencyclidine Scrn Negative (NEGATIVE) 03/11/17 10:17 Ur Amphetamines Screen Negative (NEGATIVE) 03/11/17 10:17 U Benzodiazepines Scrn Negative (NEGATIVE) 03/11/17 10:17 U Oth Cocaine Metabols Negative (NEGATIVE) 03/11/17 10:17 U Cannabinoids Screen Positive (NEGATIVE) 03/11/17 10:17 RPR Nonreactive (NONREACTIVE) 03/12/17 06:06 HIV 1&2 Antibody Screen Negative (NEGATIVE) 03/12/17 06:06 - Hospital Course Hospital Course: "CC: Unremitting headaches Mr Ying is a 26 yo M with PMHx significant for recurrent migraines, herniated cervical discs s/p surgical repair, juvenile Rheumatoid Arthritis and Sickle cell trait, who presents to the ED today with severe left-sided headache x 6 days. He describes the headache to be constant and unremitting with a " vibrating pulse" quality to it. It is localized to the left temporal region as well as the left posterior neck, radiating up to the occiput. The headache is associated with feelings of nausea, 4x episodes of vomiting, dizziness, dysequilibrium, photophobia, phonophobia, flushing, sweats and chills. When asked to further describe the headache, patient states that it is nothing like his prior episodes of migraine as a child. Those episodes had no particular pattern, came on sporadically and resolved spontaneously with rest/NSAID use. The current headache is much worse in intensity, has lasted longer and of different character. Patient also states that the current headache typically worsens from midnight-7am, often waking him out of sleep. It is also associated with spikes of intensity during urination. This is the patient's 4th ED visit for this complaint in the last week. On his ED visit yesterday he was sent home on Fioricet, Imitrex, Reglan and Zofran and instructed to f/u with outpatient neurology. However, he was unable to properly schedule the appointment with the neurologist. Currently, patient reports no relief of the headache with use of these medications." Lumbar Puncture performed in ED to r/o meningitis, clear fluid attained; csf volume:2, rbc:14, protein:69, glucose:62. Patient given ceftriaxone 2 gm iv q12 and vanco 1 g q 12. ID changed medications to ceftriaxone 2gm daily. VDRL and Cryptococcus were found to be negative. CSF culture still pending. Patient explained risks of leaving the hospital against medical advice such as infection, sepsis, and . Patient was awake, alert, oriented x3 and understood the risks. Patient decided to leave against medical advice. Paperwork was signed. Discharge Exam - Head Exam Head Exam: ATRAUMATIC - Eye Exam Eye Exam: EOMI, Normal appearance, PERRL - ENT Exam ENT Exam: Mucous Membranes Moist - Neck Exam Neck exam: Full Rom, Tenderness - Respiratory Exam Respiratory Exam: Clear to PA & Lateral, NORMAL BREATHING PATTERN - Cardiovascular Exam Cardiovascular Exam: REGULAR RHYTHM, RRR - GI/Abdominal Exam GI & Abdominal Exam: Normal Bowel Sounds. absent: Distended, Firm, Guarding - Extremities Exam Extremities exam: full ROM, normal inspection - Back Exam Back exam: NORMAL INSPECTION - Neurological Exam Neurological exam: Alert, Normal Gait, Oriented x3 - Psychiatric Exam Psychiatric exam: Normal Affect, Normal Mood - Skin Skin Exam: Intact, Normal Color, Warm Discharge Plan - Follow Up Plan Condition: FAIR Disposition: AGAINST MEDICAL ADVICE Instructions: Acute Headache (DC)
--- NOTE | 2017-03-12 17:54 | CARD ---
APPROVED REPORT EXAM: Two-dimensional and M-mode echocardiogram with Doppler and color Doppler. Other Information Quality : GoodRhythm : Bradycardia INDICATION SICKLE CELL M-Mode DIMENSIONS RVDd1.91 (2.1-3.2cm)Left Atrium (MM)3.89 (2.5-4.0cm) IVSd0.76 (0.7-1.1cm)Aortic Root2.74 (2.2-3.7cm) LVDd5.93 (4.0-5.6cm)Aortic Cusp Exc.2.26 (1.5-2.0cm) PWd0.87 (0.7-1.1cm)FS (%) 41 % LVDs3.51 (2.0-3.8cm)LVEF (%)71 (>50%) Mitral Valve MV E Gafmhzoy370.2cm/sMV A Nrybdrsv27.2cm/sE/A ratio2.1 TDI E/Lateral E'0.0E/Medial E'0.0 Tricuspid Valve TR Peak [id number]/sTR Peak Gr.[id number] LEFT VENTRICLE The left ventricle is normal size. There is normal left ventricular wall thickness. The left ventricularsystolic function is normal. The left ventricular ejection fraction is within the normal range. There is normal LV segmental wall motion. The left ventricular diastolic function is normal. Normal left atrial pressure. RIGHT VENTRICLE The right ventricle is normal size. The right ventricular systolic function is normal. ATRIA The left atrium size is normal. The right atrium size is normal. AORTIC VALVE The aortic valve is normal in structure. No aortic regurgitation is present. MITRAL VALVE The mitral valve is normal in structure. Mitral regurgitation is trace. TRICUSPID VALVE The tricuspid valve is normal in structure. There is trace to mild tricuspid regurgitation. PULMONIC VALVE The pulmonary valve is normal in structure. There is trace pulmonic valvular regurgitation. GREAT VESSELS The aortic root is normal in size. The IVC is plethoric. PERICARDIAL EFFUSION There is no pericardial effusion. <Conclusion> Normal biventricular function. No significant valvular abnormality noted. No pericardial effusion.
[2017-03-12 18:00] VITALS: PULSE 70
[2017-03-13] MEDS ORDERED: Pneumococcal 23-Valent Vaccine IM ONE (10:00)
--- NOTE | 2017-03-13 11:40 | CARD ---
APPROVED REPORT EKG Measurement Heart [id number] ME [id number] [id number] <Conclusion> Marked sinus bradycardia with marked sinus arrhythmia It may be normal for age. Clinical correlation suggested.
--- NOTE | 2017-03-17 19:45 | CARD ---
APPROVED REPORT Protocol: THELMA Test Type: NUCLEAR STRESS Test Indications: BRADYCARDIA CP Target HR: 192 bpm Resting ECG: normal Resting Heart Rate: 60 bpm Resting Blood Pressure: 122/80mmHg submaximum (85%): 163 bpm TEST SUMMARY [id number]:02..1.065/.0. PRETESTWARM-UP06:[id number]/80.0. EXERCISESTAGE 103:[id number]/80.0. EXERCISESTAGE 203:[id number]/80.0. EXERCISESTAGE 300:[id number]/80.1. YXBPCFZV13:[id number]/80.0. POST EXERCISE Reason for Termination: Fatigue Target HR: No Max HR: 113 bpm 60% of Maximum Predicted HR: 192 bpm Exercise duration: 06:57 min:sec, 3 Stage Exercise capacity: 9.9METs Max Blood Pressure: 130/80mmHg Blood Pressure response to exercise: normal resting BP - appropriate response Heart Rate response to exercise: appropriate Chest Pain: No, none Angina index: 0 Arrhythmia: No, none ST Change: No, none Deviation: 0 mm INTERPRETATION Stress EKG Conclusion: NL EST EXAM: Myocardial Perfusion STRESS/REST Imaging Protocol The imaging protocol used to acquire images was Stress Tc-99m/rest Tc-99m 1 day Stress Spect myocardial perfusion imaging was performed in supine position 45 minutes following the injection of 13.1 mCi of Tc-99 Myoview. Gated Rest Spect was performed 55 minutes after intravenous 33.0 mci Tc-99 Myoview injection. The images were gated to evaluate regional wall motion and calculate ventricular ejection fraction.Images were reconstructed using backfilter projection method in short horizontal and verticle long axis. Spect slices were generated. RESTING DATA QPU659.52ahLQ7.00L/min ESV57.00mlMyocardial Lmyb011.00g Av. Heart Rate50.00bpm EF68.00% STRESS DATA UNU188.07phOQ1.80L/min ESV65.00mlMyocardial Rmnx023.00g EF66.00% Regional WT score at stress:0.00 Regional WM score at stress:0.00 Summed WT score at stress:0.00 Av. Heart Rate53.00bpmSummed WM score at stress:3.00 LV Perf. Quant 17 Seg. SSS6.00 17 Seg. SRS0.00 17 Seg. SDS6.00 Stress Defect Extent (% LAD)1.30Rest Defect Extent (% LAD)0.00Rev. Defect Extent (% LAD)1.30 Stress Defect Extent (% LCX)15.00Rest Defect Extent (% LCX)0.00Rev. Defect Extent (% LCX)15.00 Stress Defect Extent (% RCA)0.00Rest Defect Extent (% RCA)0.00Rev. Defect Extent (% RCA)0.00 Stress Defect Extent (% OBINNA)7.40Rest Defect Extent (% OBINNA)0.00Rev. Defect Extent (% OBINNA)6.10 Other Information Quality:Good Overall Exercise Capacity: Good IMPRESSION Abnormal Myocardial Perfusion exercise stress study Global LV Function: Normal Stress Test Summary: Abnormal LV Perfusion Summary: Equivocal Metabolism/Perfusion Reversible/Irreversible: There is a small irreversible perfusion/metabolism defect in the Apical anterior and inferior wallsl. Conclusion 1. Clinical correlation suggested.
== END 2017-03-12 17:45 | disposition left against medical advice (07) ==
LOC: C.ER 08:20 → C.9E 10:01 → C.5T 13:20 → C.9E 13:26 → C.6T 13:54
PROVIDERS: ADMIT Family Medicine; ATTEND Family Medicine
DX: R51 Headache (principal); D57.1 Sickle-cell disease without crisis; D72.829 Elevated white blood cell count, unspecified; F41.9 Anxiety disorder, unspecified; J45.909 Unspecified asthma, uncomplicated; M08.00 Unspecified juvenile rheumatoid arthritis of unspecified site; F17.210 Nicotine dependence, cigarettes, uncomplicated; F12.10 Cannabis abuse, uncomplicated
CPT/HCPCS: 36415; 70553; 71010; 80048; 80053; 80324; 80345; 80346; 80349; 80353; 80358; 80361; 81001; 82607; 82746; 82945; 83735; 83992; 84100; 84157; 84439; 84443; 85025; 85651; 86021; 86592; 86703; 86777; 86780; 87015; 87040; 87070; 87081; 87101; 87116; 87149; 87206; 87327; 89050; 93306; 96360; 96365; 96374; 99285; A9579; C9113; G0378; J0696; J1100; J1885; J2270; J2765; J2920; J3370; J3475; J7040

== ENCOUNTER 2017-12-15 08:43 | Day surgery (SDC) | payer MEDICAID ==
[2017-12-11 10:57] VITALS: BMI 25.7
[2017-12-15 09:29] VITALS: O2SAT 100
[2017-12-15] MEDS ORDERED: ceFAZolin 1 gm in NS 1 GM/100 ML BAG IVPB ONE (11:53)
[2017-12-15] MEDS ORDERED: Bupivacaine HCl 0.25% PF (30 ml) Inj ONE (11:53)
[2017-12-15] MEDS ORDERED: Lidocaine/Epinephrine 1% 1:100000 10 ML IJ ONE (11:53)
[2017-12-15] MEDS ORDERED: Midazolam 2 MG/2 ML VIAL ONE (11:54)
[2017-12-15] MEDS ORDERED: Propofol 10 mg/ml Inj (20 ML) ONE ×2 (11:54→12:26)
[2017-12-15] MEDS ORDERED: Oxycodone/Acetaminophen 5/325 mg Tab PO PRN (12:26)
[2017-12-15 12:41] VITALS: RESP 18
[2017-12-15] MEDS ORDERED: Lactated Ringer's 1,000 ML IV SCH (12:45)
[2017-12-15] MEDS: HYDROmorphone 0.5 mg/0.5 ml ISec IVP PRN ×2 (12:50→12:52)
[2017-12-15] MEDS ORDERED: HYDROmorphone 0.5 mg/0.5 ml ISec ONE (12:52)
[2017-12-15 15:21] VITALS: BP 113/59; PULSE 73; TEMP 97.7
--- NOTE | 2017-12-15 23:26 | OP ---
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 PROCEDURE PERFORMED: Wide and deep excision of fascia and vascular tumors of the left leg and knee. SURGEON: Ricki Osullivan MD TYPE OF ANESTHESIA: Local sedation. ESTIMATED BLOOD LOSS: 20 mL. POSTOPERATIVE CONDITION: Stable. INDICATIONS FOR THE SURGERY: This is a 27-year-old male with two painful vascular tumors of the left lower extremity which have increased in size and over the past year become more painful. He now presents for a wide and deep excision. DESCRIPTION OF PROCEDURE: The patient was taken to the operating room. IV sedation was administered. He was placed in a prone position. The left leg was then prepped and draped. Attention was first turned to the knee mass and a generous elliptical incision was made. It was carried down into the subcutaneous tissue, fascia and the wound was completely removed. Bleeding was controlled using the Bovie. Larger blood vessels were apparent. The wound was irrigated with saline and generous tissue flaps were raised using the Bovie and an adjacent tissue transfer closure was performed with multiple layers of Monocryl, subcuticular Monocryl and glue. The above was repeated for 5 cm mass of the left leg. The patient tolerated the procedure well, returned to recovery room in stable condition. Ricki Osullivan MD
== END 2017-12-15 14:05 | disposition home or self-care (01) ==
LOC: C.SDS 08:43
PROVIDERS: ATTEND Surgery
DX: D18.01 Hemangioma of skin and subcutaneous tissue (principal)
CPT/HCPCS: 13121; 27615; 27616; 88304; J0690; J1170; J2250; J2704; J3010